=== PATIENT | male | born 1955 | race Caucasian/White ===

== ENCOUNTER → 2019-11-04 | Outpatient (CLI) | payer MEDICARE ==
--- NOTE | 2019-11-04 10:16 | RAD ---
EXAM DESCRIPTION: Chest,2 Views CLINICAL HISTORY: 64 years Male, PRE OP COMPARISON: None available. TECHNIQUE: PA and lateral radiographs of the chest were obtained. FINDINGS: Trachea is midline.The cardiomediastinal silhouette is normal in size. The pulmonary vasculature is within normal limits.The lungs are clear with no acute consolidation.No evidence of pleural effusions.No evidence of pneumothorax. IMPRESSION: No acute cardiopulmonary process. Electronically signed by: Vandana Rocha MD 11/04/2019 10:15 AM CDT
== END ==
LOC: LAB.O 08:09
PROVIDERS: ATTEND Urology
DX: N52.9 Male erectile dysfunction, unspecified (principal)